=== PATIENT | female | born 1960 | race Caucasian/White ===

== ENCOUNTER → 2016-08-10 | Outpatient (CLI) | payer OTHER ==
[~2016-08-10] MED LIST: CIPRO500 MG PO; FLOMAX0.4 MG PO; HYDROCODONE BIT1 T11 PO; MEDROL DOSEPAK4 MG PO; VICODIN 5/500 505 MG PO; ZOFRAN ODT8 MG PO
== END | disposition home or self-care (01) ==
LOC: MAMMO 16:51
DX: Z12.31 Encounter for screening mammogram for malignant neoplasm of breast (principal)

== ENCOUNTER 2020-07-24 13:41 | Inpatient (IN) | payer OTHER ==
[~2020-07-24] VITALS: Ht 152.4 cm; Wt 73.9 kg
[2020-07-24 13:48] VITALS: BP 132/76
[2020-07-24 14:50] LABS: BASO # 0.1 10*3/uL (0.0-0.1); BASO % 0.7 % (0.0-1.0); EOS # 0.1 10*3/uL (0.0-0.4); EOS % 0.6 % (1.0-4.0); HEMATOCRIT 38.3 % (37.0-47.0); LYMPH # 1.8 10*3/uL (1.3-4.4); LYMPH % 14.2 % (27.0-41.0); MEAN CELL VOLUME 83.3 fl (81.0-99.0); MEAN CORPUSCULAR HGB 26.7 pg (27.0-31.0); MEAN CORPUSCULAR HGB CONC 32.1 g/dl (33.0-37.0); MEAN PLATELET VOLUME 8.7 fl (9.6-12.3); MONO # 1.5 10*3/uL (0.1-1.0); MONO % 12.1 % (3.0-9.0); NEUT # 8.9 10*3/uL (2.3-7.9); NEUT % 71.8 % (47.0-73.0); PLATELET COUNT AUTOMATED 531 10*3/uL (130-400); RED CELL DISTRI WIDTH 13.4 % (0-14.5); WHITE BLOOD COUNT 12.3 10*3/uL (4.8-10.8)
[2020-07-24 15:05] LABS: ALBUMIN 3.1 gm/dl (3.1-4.5); ALKALINE PHOSPHATASE 72 U/L (45-117); BUN 20 mg/dl (7-24); CHLORIDE 101 mmol/L (98-107); CREATININE 0.97 mg/dL (0.55-1.02); LIPASE 82 U/L (73-393); POTASSIUM 3.2 mmol/L (3.5-5.1); SGOT/AST 6 IU/L (3-35); SGPT/ALT 22 U/L (12-78); SODIUM 136 mmol/L (136-145); TOTAL PROTEIN 7.5 gm/dL (6.4-8.2)
[2020-07-24 16:55] LABS: BILIRUBIN Negative (Negative); BLOOD 1+ (Negative); CLARITY Clear (Clear); COLOR Yellow (Yellow); GLUCOSE Negative (Negative); KETONE 2+ (Negative); LEUKO ESTERASE Negative (Negative); NITRITE Negative (Negative); PH 5.5 (4.5-8.0); SPECIFIC GRAVITY >= 1.030 (1.001-1.030)
[2020-07-24 17:06] LABS: BACTERIA TRACE; FINE GRANULAR CAST 0-2; HYALINE CAST 0-2; MUCOUS 2+
[2020-07-24] MEDS ORDERED: AMLODIPINE BESYL5 MG PO (17:49)
[2020-07-24 17:50] VITALS: BP 119/60
[2020-07-24 19:55] VITALS: BP 120/65
[2020-07-25] VITALS: BP 115/62
[2020-07-25 06:34] LABS: ACT PARTIAL THROMBO TIME 29.9 SECONDS (20.0-32.1)
[2020-07-25 06:43] LABS: ALBUMIN 2.7 gm/dl (3.1-4.5); ALKALINE PHOSPHATASE 63 U/L (45-117); BUN 14 mg/dl (7-24); CHLORIDE 110 mmol/L (98-107); CHOLESTEROL 130 mg/dL (<200); CREATININE 0.89 mg/dL (0.55-1.02); FREE T4 1.47 ng/dl (0.76-1.46); POTASSIUM 3.5 mmol/L (3.5-5.1); SGOT/AST 6 IU/L (3-35); SGPT/ALT 17 U/L (12-78); SODIUM 139 mmol/L (136-145); TRIGLYCERIDES 95 mg/dl (<150); VLDL CHOLESTEROL 19 mg/dL (6-40)
[2020-07-25 06:48] LABS: HDL CHOLESTEROL 39 mg/dl (40-60); LDL CHOLESTEROL 72 mg/dL (9-159); TOTAL PROTEIN 6.5 gm/dL (6.4-8.2)
[2020-07-25 07:04] LABS: BASO # 0.1 10*3/uL (0.0-0.1); BASO % 0.6 % (0.0-1.0); EOS # 0.3 10*3/uL (0.0-0.4); EOS % 2.6 % (1.0-4.0); HEMATOCRIT 35.1 % (37.0-47.0); LYMPH # 2.4 10*3/uL (1.3-4.4); MEAN CELL VOLUME 85.8 fl (81.0-99.0); MEAN CORPUSCULAR HGB 26.9 pg (27.0-31.0); MEAN CORPUSCULAR HGB CONC 31.3 g/dl (33.0-37.0); MEAN PLATELET VOLUME 9.1 fl (9.6-12.3); MONO # 1.4 10*3/uL (0.1-1.0); MONO % 11.6 % (3.0-9.0); NEUT # 8.1 10*3/uL (2.3-7.9); NEUT % 65.4 % (47.0-73.0); PLATELET COUNT AUTOMATED 537 10*3/uL (130-400); RED BLOOD COUNT 4.09 10*6/uL (4.10-5.10); RED CELL DISTRI WIDTH 13.6 % (0-14.5); WHITE BLOOD COUNT 12.4 10*3/uL (4.8-10.8)
[2020-07-25 11:00] LABS: VITAMIN D, 25-HYDROXY 19.7 ng/mL (30-100)
[2020-07-25 12:00] VITALS: BP 136/71
[2020-07-25 16:00] VITALS: BP 114/59
[2020-07-25 20:00] VITALS: BP 130/69
[2020-07-26] VITALS: BP 117/65
[2020-07-26 06:11] LABS: BUN 10 mg/dl (7-24); CHLORIDE 108 mmol/L (98-107); CREATININE 0.73 mg/dL (0.55-1.02); SODIUM 141 mmol/L (136-145)
[2020-07-26 06:28] LABS: BASO # 0.1 10*3/uL (0.0-0.1); BASO % 0.6 % (0.0-1.0); EOS # 0.2 10*3/uL (0.0-0.4); EOS % 1.9 % (1.0-4.0); LYMPH % 17.7 % (27.0-41.0); MEAN CELL VOLUME 84.9 fl (81.0-99.0); MEAN CORPUSCULAR HGB 26.6 pg (27.0-31.0); MEAN CORPUSCULAR HGB CONC 31.3 g/dl (33.0-37.0); MEAN PLATELET VOLUME 8.9 fl (9.6-12.3); MONO # 1.3 10*3/uL (0.1-1.0); NEUT # 7.5 10*3/uL (2.3-7.9); NEUT % 67.2 % (47.0-73.0); PLATELET COUNT AUTOMATED 458 10*3/uL (130-400); RED BLOOD COUNT 3.65 10*6/uL (4.10-5.10); RED CELL DISTRI WIDTH 13.5 % (0-14.5); WHITE BLOOD COUNT 11.2 10*3/uL (4.8-10.8)
[2020-07-26 08:00] VITALS: BP 114/60
[2020-07-26 12:00] VITALS: BP 106/57
[2020-07-26 16:00] VITALS: BP 125/64
[2020-07-26 20:00] VITALS: BP 121/63
[2020-07-27] VITALS: BP 108/97
[2020-07-27 08:59] VITALS: BP 116/80
[2020-07-27 10:26] LABS: BASO # 0.1 10*3/uL (0.0-0.1); BASO % 0.7 % (0.0-1.0); EOS # 0.2 10*3/uL (0.0-0.4); EOS % 1.6 % (1.0-4.0); HEMATOCRIT 32.5 % (37.0-47.0); LYMPH # 1.8 10*3/uL (1.3-4.4); LYMPH % 15.4 % (27.0-41.0); MEAN CELL VOLUME 85.3 fl (81.0-99.0); MEAN CORPUSCULAR HGB 26.5 pg (27.0-31.0); MEAN CORPUSCULAR HGB CONC 31.1 g/dl (33.0-37.0); MEAN PLATELET VOLUME 8.7 fl (9.6-12.3); MONO # 1.1 10*3/uL (0.1-1.0); MONO % 9.5 % (3.0-9.0); NEUT # 8.2 10*3/uL (2.3-7.9); NEUT % 71.1 % (47.0-73.0); PLATELET COUNT AUTOMATED 488 10*3/uL (130-400); RED BLOOD COUNT 3.81 10*6/uL (4.10-5.10); RED CELL DISTRI WIDTH 13.8 % (0-14.5); WHITE BLOOD COUNT 11.5 10*3/uL (4.8-10.8)
[2020-07-27 10:36] LABS: BUN 12 mg/dl (7-24); CHLORIDE 108 mmol/L (98-107); CREATININE 0.93 mg/dL (0.55-1.02); POTASSIUM 2.9 mmol/L (3.5-5.1); SODIUM 141 mmol/L (136-145)
[2020-07-27 11:42] VITALS: BP 108/66
[2020-07-27 15:53] VITALS: BP 107/66
[2020-07-27 20:00] VITALS: BP 112/60
[2020-07-28] VITALS: BP 108/97
[2020-07-28 05:49] LABS: BUN 13 mg/dl (7-24); CHLORIDE 110 mmol/L (98-107); CREATININE 0.74 mg/dL (0.55-1.02); POTASSIUM 3.4 mmol/L (3.5-5.1); SODIUM 141 mmol/L (136-145)
[2020-07-28 06:08] LABS: BASO # 0.1 10*3/uL (0.0-0.1); BASO % 0.7 % (0.0-1.0); EOS # 0.3 10*3/uL (0.0-0.4); HEMATOCRIT 32.2 % (37.0-47.0); LYMPH # 2.3 10*3/uL (1.3-4.4); LYMPH % 21.8 % (27.0-41.0); MEAN CELL VOLUME 85.6 fl (81.0-99.0); MEAN CORPUSCULAR HGB 26.3 pg (27.0-31.0); MEAN CORPUSCULAR HGB CONC 30.7 g/dl (33.0-37.0); MEAN PLATELET VOLUME 8.8 fl (9.6-12.3); MONO # 1.2 10*3/uL (0.1-1.0); MONO % 10.8 % (3.0-9.0); NEUT # 6.6 10*3/uL (2.3-7.9); NEUT % 62.4 % (47.0-73.0); PLATELET COUNT AUTOMATED 510 10*3/uL (130-400); RED BLOOD COUNT 3.76 10*6/uL (4.10-5.10); RED CELL DISTRI WIDTH 13.8 % (0-14.5); WHITE BLOOD COUNT 10.6 10*3/uL (4.8-10.8)
[2020-07-28 08:00] VITALS: BP 121/71
[2020-07-28] MEDS ORDERED: PANTOPRAZOLE SO40 MG PO (09:53)
[2020-07-28] MEDS ORDERED: CIPROFLOXACIN500 M4 PO (09:53)
[2020-07-28] MEDS ORDERED: VITAMIN D350 MC2 PO (09:53)
[2020-07-28] MEDS ORDERED: DELZICOL400 M2 PO (09:53)
[2020-07-28] MEDS ORDERED: METRONIDAZOLE500 M1 PO (09:53)
== END 2020-07-28 10:10 | disposition home or self-care (01) | DRG 872 ==
LOC: ED 13:41 → 5E 18:13 → EDHOLD 18:13 → 5E 19:28
PROVIDERS: Hospitalist; Internal Medicine; Physician Assistant; Registered Nurse; ADMIT Family Medicine; ATTEND Family Medicine
DX: A41.9 Sepsis, unspecified organism (principal); K92.2 Gastrointestinal hemorrhage, unspecified; E44.0 Moderate protein-calorie malnutrition; D47.3 Essential (hemorrhagic) thrombocythemia; K81.9 Cholecystitis, unspecified; I10 Essential (primary) hypertension; K52.9 Noninfective gastroenteritis and colitis, unspecified; E87.6 Hypokalemia; R73.9 Hyperglycemia, unspecified; Z80.0 Family history of malignant neoplasm of digestive organs; Z80.3 Family history of malignant neoplasm of breast; Z79.899 Other long term (current) drug therapy

== ENCOUNTER 2020-08-25 13:09 | Observation (INO) | payer OTHER ==
[~2020-08-25] VITALS: Ht 152.4 cm; Wt 74.8 kg
[~2020-08-25 13:09] MED LIST changes: +AMLODIPINE BESYL5 MG PO; +CIPROFLOXACIN500 M4 PO; +DELZICOL400 M2 PO; +METRONIDAZOLE500 M1 PO; +PANTOPRAZOLE SO40 MG PO; +VITAMIN D350 MC2 PO
[2020-08-25 13:59] VITALS: BP 100/62
[2020-08-25 14:11] LABS: HEMATOCRIT 28.2 % (37.0-47.0); MEAN CELL VOLUME 79.7 fl (81.0-99.0); MEAN CORPUSCULAR HGB 24.9 pg (27.0-31.0); MEAN CORPUSCULAR HGB CONC 31.2 g/dl (33.0-37.0); MEAN PLATELET VOLUME 8.4 fl (9.6-12.3); NUCLEATED RED BLOOD CELL 0.1 10*3/uL (0.0-0.0); NUCLEATED RED BLOOD CELL 0.6 % (0.0-0.0); PLATELET COUNT AUTOMATED 528 10*3/uL (130-400); RED BLOOD COUNT 3.54 10*6/uL (4.10-5.10); RED CELL DISTRI WIDTH 14.8 % (0-14.5)
[2020-08-25 14:25] LABS: ACT PARTIAL THROMBO TIME 26.2 SECONDS (20.0-32.1); INTERNATIONAL NORM RATIO 1.1 (2.0-3.5)
[2020-08-25 14:29] LABS: ALBUMIN 1.8 gm/dl (3.1-4.5); ALKALINE PHOSPHATASE 72 U/L (45-117); BUN 22 mg/dl (7-24); CHLORIDE 89 mmol/L (98-107); CREATININE 1.35 mg/dL (0.55-1.02); POTASSIUM 3.2 mmol/L (3.5-5.1); SGOT/AST 15 IU/L (3-35); SGPT/ALT 26 U/L (12-78); SODIUM 129 mmol/L (136-145); TOTAL PROTEIN 6.6 gm/dL (6.4-8.2)
[2020-08-25 14:31] LABS: TOTAL CELLS COUNTED 100 #CELLS
[2020-08-25 14:32] LABS: PLATELET SUFFICIENCY HIGH (NORMAL); TROPONIN I < 0.015 ng/ml (<0.045)
[2020-08-25 14:33] LABS: OVALOCYTES FEW; POLYCHROMASIA SLIGHT
[2020-08-25 15:00] VITALS: BP 102/58
[2020-08-25 15:30] VITALS: BP 100/60
[2020-08-25 16:00] VITALS: BP 109/63
[2020-08-25 18:20] VITALS: BP 113/67
[2020-08-25 20:00] VITALS: BP 101/59
[2020-08-25 21:10] LABS: BILIRUBIN Negative (Negative); BLOOD 2+ (Negative); CLARITY Cloudy (Clear); COLOR Yellow (Yellow); GLUCOSE Negative (Negative); KETONE Negative (Negative); LEUKO ESTERASE 2+ (Negative); NITRITE Negative (Negative); PH 5.5 (4.5-8.0); SPECIFIC GRAVITY 1.015 (1.001-1.030); UROBILINOGEN 0.2 E.U./dl (0.0-1.0)
[2020-08-25 21:20] LABS: BACTERIA 1+; EPITHELIAL CELLS 51-100; URIC ACID CRYSTALS TRACE; WBC 16-20 wbc/hpf (0-5)
[2020-08-25 22:27] LABS: MEAN CELL VOLUME 80.1 fl (81.0-99.0); MEAN CORPUSCULAR HGB CONC 31.2 g/dl (33.0-37.0); MEAN PLATELET VOLUME 8.3 fl (9.6-12.3); NUCLEATED RED BLOOD CELL 0.2 % (0.0-0.0); PLATELET COUNT AUTOMATED 410 10*3/uL (130-400); RED BLOOD COUNT 3.12 10*6/uL (4.10-5.10); RED CELL DISTRI WIDTH 14.8 % (0-14.5); WHITE BLOOD COUNT 10.9 10*3/uL (4.8-10.8)
[2020-08-25 22:48] LABS: MICROCYTOSIS SLIGHT; PLATELET SUFFICIENCY HIGH (NORMAL); TOTAL CELLS COUNTED 100 #CELLS
[2020-08-26] VITALS: BP 94/54
[2020-08-26 05:56] LABS: MEAN CELL VOLUME 81.3 fl (81.0-99.0); MEAN CORPUSCULAR HGB 25.1 pg (27.0-31.0); MEAN CORPUSCULAR HGB CONC 30.9 g/dl (33.0-37.0); MEAN PLATELET VOLUME 8.4 fl (9.6-12.3); NUCLEATED RED BLOOD CELL 0.3 % (0.0-0.0); PLATELET COUNT AUTOMATED 380 10*3/uL (130-400); RED BLOOD COUNT 2.83 10*6/uL (4.10-5.10); RED CELL DISTRI WIDTH 14.8 % (0-14.5); WHITE BLOOD COUNT 11.6 10*3/uL (4.8-10.8)
[2020-08-26 06:31] LABS: CHLORIDE 100 mmol/L (98-107); SODIUM 136 mmol/L (136-145)
[2020-08-26 06:46] LABS: ALBUMIN 1.5 gm/dl (3.1-4.5); ALKALINE PHOSPHATASE 56 U/L (45-117); BUN 17 mg/dl (7-24); CREATININE 0.95 mg/dL (0.55-1.02); SGOT/AST 8 IU/L (3-35); SGPT/ALT 20 U/L (12-78); TOTAL PROTEIN 5.2 gm/dL (6.4-8.2)
[2020-08-26 06:56] LABS: PLATELET SUFFICIENCY NORMAL (NORMAL); ROULEAUX SLIGHT; SCHISTOCYTES FEW; TOTAL CELLS COUNTED 100 #CELLS
[2020-08-26 08:17] VITALS: BP 112/62
[2020-08-26 20:00] VITALS: BP 97/52
[2020-08-26 23:55] VITALS: BP 104/58
[2020-08-27] VITALS (11 sets, daily range): BP systolic 97–143; BP diastolic 46–93
[2020-08-27 06:10] LABS: MEAN CELL VOLUME 82.7 fl (81.0-99.0); MEAN CORPUSCULAR HGB 24.5 pg (27.0-31.0); MEAN CORPUSCULAR HGB CONC 29.6 g/dl (33.0-37.0); MEAN PLATELET VOLUME 8.6 fl (9.6-12.3); NUCLEATED RED BLOOD CELL 0.3 % (0.0-0.0); PLATELET COUNT AUTOMATED 381 10*3/uL (130-400); RED BLOOD COUNT 2.78 10*6/uL (4.10-5.10); WHITE BLOOD COUNT 7.8 10*3/uL (4.8-10.8)
[2020-08-27 06:20] LABS: BUN 12 mg/dl (7-24); CHLORIDE 103 mmol/L (98-107); CREATININE 0.79 mg/dL (0.55-1.02); POTASSIUM 2.8 mmol/L (3.5-5.1); SODIUM 138 mmol/L (136-145)
[2020-08-27 07:12] LABS: BURR CELLS FEW; PLATELET SUFFICIENCY NORMAL (NORMAL); POLYCHROMASIA SLIGHT; TOTAL CELLS COUNTED 100 #CELLS
[2020-08-27 13:33] LABS: HEMATOCRIT 26.8 % (37.0-47.0)
[2020-08-28] VITALS (8 sets, daily range): BP systolic 95–123; BP diastolic 57–72
[2020-08-28 06:01] LABS: BUN 8 mg/dl (7-24); CHLORIDE 108 mmol/L (98-107); CREATININE 0.73 mg/dL (0.55-1.02); POTASSIUM 3.3 mmol/L (3.5-5.1); SODIUM 141 mmol/L (136-145)
[2020-08-28 06:20] LABS: HEMATOCRIT 26.2 % (37.0-47.0); MEAN CORPUSCULAR HGB 25.6 pg (27.0-31.0); MEAN CORPUSCULAR HGB CONC 30.5 g/dl (33.0-37.0); MEAN PLATELET VOLUME 8.3 fl (9.6-12.3); PLATELET COUNT AUTOMATED 388 10*3/uL (130-400); RED BLOOD COUNT 3.12 10*6/uL (4.10-5.10); RED CELL DISTRI WIDTH 15.1 % (0-14.5); WHITE BLOOD COUNT 8.6 10*3/uL (4.8-10.8)
[2020-08-28 07:27] LABS: BURR CELLS FEW; OVALOCYTES FEW; POLYCHROMASIA SLIGHT; TOTAL CELLS COUNTED 100 #CELLS
[2020-08-28 07:28] LABS: PLATELET SUFFICIENCY NORMAL (NORMAL); ROULEAUX SLIGHT
[2020-08-29] VITALS: BP 102/57
[2020-08-29 06:18] LABS: HEMATOCRIT 25.7 % (37.0-47.0); MEAN CELL VOLUME 83.2 fl (81.0-99.0); MEAN CORPUSCULAR HGB 25.2 pg (27.0-31.0); MEAN CORPUSCULAR HGB CONC 30.4 g/dl (33.0-37.0); MEAN PLATELET VOLUME 8.2 fl (9.6-12.3); NUCLEATED RED BLOOD CELL 0.2 % (0.0-0.0); PLATELET COUNT AUTOMATED 394 10*3/uL (130-400); RED BLOOD COUNT 3.09 10*6/uL (4.10-5.10); RED CELL DISTRI WIDTH 15.6 % (0-14.5); WHITE BLOOD COUNT 11.3 10*3/uL (4.8-10.8)
[2020-08-29 06:46] LABS: CHLORIDE 109 mmol/L (98-107); POTASSIUM 3.1 mmol/L (3.5-5.1); SODIUM 141 mmol/L (136-145)
[2020-08-29 06:50] LABS: BUN 8 mg/dl (7-24); CREATININE 0.68 mg/dL (0.55-1.02)
[2020-08-29 07:06] LABS: ATYPICAL LYMPHS 1 % (0-0); BASOPHILS 1 % (0-1); BURR CELLS MODERATE; OVALOCYTES FEW; PLATELET SUFFICIENCY NORMAL (NORMAL); POLYCHROMASIA SLIGHT; ROULEAUX SLIGHT; TOTAL CELLS COUNTED 100 #CELLS
[2020-08-29 08:00] VITALS: BP 104/74
[2020-08-29 12:00] VITALS: BP 101/63
[2020-08-29 16:00] VITALS: BP 119/68
[2020-08-29 20:00] VITALS: BP 101/61
[2020-08-30 00:08] VITALS: BP 98/57
[2020-08-30 06:52] LABS: BUN 12 mg/dl (7-24); CHLORIDE 109 mmol/L (98-107); POTASSIUM 3.9 mmol/L (3.5-5.1); SODIUM 141 mmol/L (136-145)
[2020-08-30 08:00] VITALS: BP 81/47
[2020-08-30 09:35] VITALS: BP 101/60
[2020-08-30 12:00] VITALS: BP 104/59
[2020-08-30 16:00] VITALS: BP 103/58
[2020-08-30 20:00] VITALS: BP 100/45
[2020-08-31] VITALS: BP 96/52
[2020-08-31 08:00] VITALS: BP 121/65
[2020-08-31 12:04] VITALS: BP 104/57
[2020-08-31 16:00] VITALS: BP 113/70
[2020-08-31 20:00] VITALS: BP 120/73
[2020-09-01] VITALS: BP 120/66
[2020-09-01 08:00] VITALS: BP 108/64
[2020-09-01] MEDS ORDERED: ASACOL HD800 M1 PO (12:53)
[2020-09-01] MEDS ORDERED: PREDNISONE10 MG PO (12:56)
[2020-09-01] MEDS ORDERED: HYDROCODONE-AC1 EAC1 PO (12:57)
== END 2020-09-01 17:44 | disposition home or self-care (01) ==
LOC: ED 13:09 → EDHOLD 14:51 → 5E 14:51 → EDHOLD 16:41 → 5E 17:12
PROVIDERS: Emergency Medicine; Internal Medicine; ADMIT Internal Medicine; ATTEND Internal Medicine
DX: K62.5 Hemorrhage of anus and rectum (principal); K51.90 Ulcerative colitis, unspecified, without complications; R79.89 Other specified abnormal findings of blood chemistry; E87.1 Hypo-osmolality and hyponatremia; E87.2 Acidosis; N17.0 Acute kidney failure with tubular necrosis; D50.0 Iron deficiency anemia secondary to blood loss (chronic); R00.0 Tachycardia, unspecified; D72.829 Elevated white blood cell count, unspecified; D47.3 Essential (hemorrhagic) thrombocythemia; E87.8 Other disorders of electrolyte and fluid balance, not elsewhere classified; E87.6 Hypokalemia; E83.41 Hypermagnesemia; E83.39 Other disorders of phosphorus metabolism; E43 Unspecified severe protein-calorie malnutrition

== ENCOUNTER 2020-12-03 16:07 | Observation (INO) | payer OTHER ==
[2020-12-03] VITALS (15 sets, daily range): BP systolic 119–133; BP diastolic 58–92
[~2020-12-03] VITALS: Ht 152.4 cm; Wt 72.6 kg
[~2020-12-03 16:07] MED LIST changes: +ASACOL HD800 M1 PO; +HYDROCODONE-AC1 EAC1 PO; +PREDNISONE10 MG PO
[2020-12-03 18:00] LABS: HEMATOCRIT 21.9 % (37.0-47.0); MEAN CELL VOLUME 72.8 fl (81.0-99.0); MEAN CORPUSCULAR HGB 19.9 pg (27.0-31.0); MEAN CORPUSCULAR HGB CONC 27.4 g/dl (33.0-37.0); MEAN PLATELET VOLUME 8.6 fl (9.6-12.3); NUCLEATED RED BLOOD CELL 0.2 % (0.0-0.0); PLATELET COUNT AUTOMATED 847 10*3/uL (130-400); RED BLOOD COUNT 3.01 10*6/uL (4.10-5.10); RED CELL DISTRI WIDTH 17.2 % (0-14.5); WHITE BLOOD COUNT 8.7 10*3/uL (4.8-10.8)
[2020-12-03 18:18] LABS: ALBUMIN 3.2 gm/dl (3.1-4.5); ALKALINE PHOSPHATASE 48 U/L (45-117); BUN 18 mg/dl (7-24); CHLORIDE 107 mmol/L (98-107); CREATININE 0.82 mg/dL (0.55-1.02); LIPASE 176 U/L (73-393); SGOT/AST 11 IU/L (3-35); SGPT/ALT 19 U/L (12-78); SODIUM 138 mmol/L (136-145); TOTAL PROTEIN 7.3 gm/dL (6.4-8.2); TROPONIN I < 0.015 ng/ml (<0.045)
[2020-12-03 18:21] LABS: BASOPHILS 1 % (0-1); MICROCYTOSIS SLIGHT; PLATELET SUFFICIENCY HIGH (NORMAL); TOTAL CELLS COUNTED 100 #CELLS
[2020-12-03 18:22] LABS: OVALOCYTES FEW; TARGET CELLS FEW
[2020-12-03 18:35] LABS: BILIRUBIN Negative (Negative); BLOOD Negative (Negative); CLARITY Clear (Clear); COLOR Yellow (Yellow); GLUCOSE Negative (Negative); KETONE Negative (Negative); LEUKO ESTERASE Negative (Negative); NITRITE Negative (Negative); UROBILINOGEN 0.2 E.U./dl (0.0-1.0)
[2020-12-03 18:52] LABS: BACTERIA TRACE; MUCOUS TRACE
[2020-12-04] VITALS (7 sets, daily range): BP systolic 113–142; BP diastolic 52–70
[2020-12-04] MEDS ORDERED: ONDANSETRON HYDR4 M1 PO (01:31)
[2020-12-04] MEDS ORDERED: ROPINIROLE HYDRO2 M2 PO (02:38)
[2020-12-04 02:57] LABS: BASO # 0.1 10*3/uL (0.0-0.1); BASO % 0.9 % (0.0-1.0); EOS # 0.6 10*3/uL (0.0-0.4); EOS % 5.5 % (1.0-4.0); LYMPH # 2.6 10*3/uL (1.3-4.4); LYMPH % 23.7 % (27.0-41.0); MEAN CELL VOLUME 76.6 fl (81.0-99.0); MEAN CORPUSCULAR HGB 22.7 pg (27.0-31.0); MEAN CORPUSCULAR HGB CONC 29.7 g/dl (33.0-37.0); MEAN PLATELET VOLUME 8.2 fl (9.6-12.3); MONO # 1.4 10*3/uL (0.1-1.0); MONO % 12.1 % (3.0-9.0); NEUT # 6.3 10*3/uL (2.3-7.9); NUCLEATED RED BLOOD CELL 0.1 10*3/uL (0.0-0.0); NUCLEATED RED BLOOD CELL 0.5 % (0.0-0.0); PLATELET COUNT AUTOMATED 751 10*3/uL (130-400); RED BLOOD COUNT 4.18 10*6/uL (4.10-5.10); RED CELL DISTRI WIDTH 18.9 % (0-14.5); WHITE BLOOD COUNT 11.1 10*3/uL (4.8-10.8)
[2020-12-04 06:28] LABS: ALBUMIN 3.2 gm/dl (3.1-4.5); CHLORIDE 108 mmol/L (98-107); POTASSIUM 3.8 mmol/L (3.5-5.1); SODIUM 139 mmol/L (136-145); TOTAL PROTEIN 7.2 gm/dL (6.4-8.2)
[2020-12-04 06:29] LABS: HEMATOCRIT 30.4 % (37.0-47.0); MEAN CELL VOLUME 75.8 fl (81.0-99.0); MEAN CORPUSCULAR HGB 22.4 pg (27.0-31.0); MEAN CORPUSCULAR HGB CONC 29.6 g/dl (33.0-37.0); MEAN PLATELET VOLUME 8.7 fl (9.6-12.3); NUCLEATED RED BLOOD CELL 0.4 % (0.0-0.0); PLATELET COUNT AUTOMATED 766 10*3/uL (130-400); RED BLOOD COUNT 4.01 10*6/uL (4.10-5.10); RED CELL DISTRI WIDTH 18.7 % (0-14.5); WHITE BLOOD COUNT 10.8 10*3/uL (4.8-10.8)
[2020-12-04 06:35] LABS: ALKALINE PHOSPHATASE 45 U/L (45-117); BUN 14 mg/dl (7-24); FREE T4 1.02 ng/dl (0.76-1.46); SGOT/AST 13 IU/L (3-35); SGPT/ALT 20 U/L (12-78)
[2020-12-04 07:10] LABS: BASOPHILS 4 % (0-1); TOTAL CELLS COUNTED 100 #CELLS
[2020-12-04 07:11] LABS: MICROCYTOSIS SLIGHT; PLATELET SUFFICIENCY HIGH (NORMAL)
[2020-12-04 14:21] LABS: MEAN CORPUSCULAR HGB 22.3 pg (27.0-31.0); MEAN CORPUSCULAR HGB CONC 29.4 g/dl (33.0-37.0); MEAN PLATELET VOLUME 8.5 fl (9.6-12.3); NUCLEATED RED BLOOD CELL 0.1 10*3/uL (0.0-0.0); PLATELET COUNT AUTOMATED 768 10*3/uL (130-400); RED BLOOD COUNT 4.08 10*6/uL (4.10-5.10); RED CELL DISTRI WIDTH 18.5 % (0-14.5); WHITE BLOOD COUNT 11.9 10*3/uL (4.8-10.8)
[2020-12-04 14:42] LABS: BASOPHILS 2 % (0-1); TOTAL CELLS COUNTED 100 #CELLS
[2020-12-04 14:44] LABS: PLATELET SUFFICIENCY HIGH (NORMAL); POLYCHROMASIA SLIGHT
[2020-12-04 14:45] LABS: MICROCYTOSIS SLIGHT
[2020-12-04] MEDS ORDERED: PREDNISONE10 MG PO (15:49)
== END 2020-12-04 17:50 | disposition home or self-care (01) ==
LOC: ED 16:07 → 4E 12-04 01:04 → EDHOLD 12-04 01:04 → 4E 12-04 01:04
PROVIDERS: Internal Medicine; Nurse Practitioner Family; ADMIT Family Medicine; ATTEND Family Medicine
DX: K92.2 Gastrointestinal hemorrhage, unspecified (principal); D50.9 Iron deficiency anemia, unspecified; D47.3 Essential (hemorrhagic) thrombocythemia; K59.00 Constipation, unspecified; K51.90 Ulcerative colitis, unspecified, without complications; K76.0 Fatty (change of) liver, not elsewhere classified; G25.81 Restless legs syndrome; I10 Essential (primary) hypertension; E66.9 Obesity, unspecified; R73.9 Hyperglycemia, unspecified; E83.41 Hypermagnesemia; Z87.891 Personal history of nicotine dependence

== ENCOUNTER → 2021-01-08 | Outpatient (CLI) | payer OTHER ==
[~2021-01-08] MED LIST changes: +ONDANSETRON HYDR4 M1 PO; +ROPINIROLE HYDRO2 M2 PO
== END | disposition home or self-care (01) ==
LOC: MAMMO 11:26
PROVIDERS: ATTEND Nurse Practitioner Family
DX: Z12.31 Encounter for screening mammogram for malignant neoplasm of breast (principal); N64.89 Other specified disorders of breast

== ENCOUNTER → 2021-01-27 | Outpatient (CLI) | payer OTHER | END | disposition home or self-care (01) | LOC: MAMMO 14:13 | PROVIDERS: ATTEND Nurse Practitioner Family | DX: R92.8 Other abnormal and inconclusive findings on diagnostic imaging of breast (principal) ==

== ENCOUNTER → 2021-02-09 | Outpatient (CLI) | payer OTHER ==
[2021-02-09 13:41] LABS: BASO # 0.1 10*3/uL (0.0-0.1); BASO % 1.1 % (0.0-1.0); EOS # 0.3 10*3/uL (0.0-0.4); EOS % 3.7 % (1.0-4.0); HEMATOCRIT 33.1 % (37.0-47.0); LYMPH # 1.9 10*3/uL (1.3-4.4); LYMPH % 26.1 % (27.0-41.0); MEAN CELL VOLUME 76.6 fl (81.0-99.0); MEAN CORPUSCULAR HGB CONC 28.7 g/dl (33.0-37.0); MEAN PLATELET VOLUME 8.7 fl (9.6-12.3); MONO # 0.7 10*3/uL (0.1-1.0); MONO % 9.6 % (3.0-9.0); NEUT # 4.3 10*3/uL (2.3-7.9); NEUT % 59.4 % (47.0-73.0); PLATELET COUNT AUTOMATED 609 10*3/uL (130-400); RED BLOOD COUNT 4.32 10*6/uL (4.10-5.10); RED CELL DISTRI WIDTH 18.7 % (0-14.5); WHITE BLOOD COUNT 7.3 10*3/uL (4.8-10.8)
[2021-02-09 14:05] LABS: IRON 37 ug/dL (50-170); TOTAL IRON BINDING CAPACITY 422 ug/dl (250-450)
== END | disposition home or self-care (01) ==
LOC: LAB 13:16
PROVIDERS: ATTEND Nurse Practitioner Family
DX: D64.9 Anemia, unspecified (principal); K62.5 Hemorrhage of anus and rectum; G25.81 Restless legs syndrome

== ENCOUNTER → 2021-02-10 | Outpatient (CLI) | payer OTHER ==
[2021-02-10 14:57] LABS: BASO # 0.1 10*3/uL (0.0-0.1); BASO % 1.1 % (0.0-1.0); EOS # 0.3 10*3/uL (0.0-0.4); EOS % 3.4 % (1.0-4.0); HEMATOCRIT 34.7 % (37.0-47.0); LYMPH # 2.5 10*3/uL (1.3-4.4); LYMPH % 27.8 % (27.0-41.0); MEAN CELL VOLUME 77.1 fl (81.0-99.0); MEAN CORPUSCULAR HGB CONC 28.5 g/dl (33.0-37.0); MEAN PLATELET VOLUME 8.6 fl (9.6-12.3); MONO # 0.8 10*3/uL (0.1-1.0); MONO % 9.5 % (3.0-9.0); NEUT # 5.1 10*3/uL (2.3-7.9); PLATELET COUNT AUTOMATED 634 10*3/uL (130-400); RED CELL DISTRI WIDTH 18.8 % (0-14.5); WHITE BLOOD COUNT 8.9 10*3/uL (4.8-10.8)
== END | disposition home or self-care (01) ==
LOC: LAB 14:37
PROVIDERS: ATTEND Surgery
DX: D64.9 Anemia, unspecified (principal)

== ENCOUNTER 2021-05-13 16:33 | Inpatient (IN) | payer OTHER ==
[2021-05-13] VITALS (10 sets, daily range): BP systolic 110–145; BP diastolic 55–78
[~2021-05-13] VITALS: Ht 152.4 cm; Wt 76.0 kg
[2021-05-13 17:39] LABS: MEAN CORPUSCULAR HGB CONC 26.1 g/dl (33.0-37.0); NUCLEATED RED BLOOD CELL 0.1 10*3/uL (0.0-0.0); RED CELL DISTRI WIDTH 17.8 % (0-14.5)
[2021-05-13 17:41] LABS: MEAN CELL VOLUME 65.2 fl (81.0-99.0); MEAN PLATELET VOLUME 8.7 fl (9.6-12.3); NUCLEATED RED BLOOD CELL 0.8 % (0.0-0.0); PLATELET COUNT AUTOMATED 660 10*3/uL (130-400); RED BLOOD COUNT 2.53 10*6/uL (4.10-5.10); WHITE BLOOD COUNT 7.7 10*3/uL (4.8-10.8)
[2021-05-13 17:56] LABS: ALBUMIN 3.2 gm/dl (3.1-4.5); CREATININE 1.17 mg/dL (0.55-1.02); POTASSIUM 3.9 mmol/L (3.5-5.1); TOTAL PROTEIN 7.1 gm/dL (6.4-8.2)
[2021-05-13 18:02] LABS: ACT PARTIAL THROMBO TIME 23.6 SECONDS (20.0-32.1)
[2021-05-13 18:11] LABS: BASOPHILS 2 % (0-1); PLATELET SUFFICIENCY HIGH (NORMAL); TOTAL CELLS COUNTED 100 #CELLS
[2021-05-13 18:12] LABS: POLYCHROMASIA SLIGHT; STOMATOCYTE FEW; TARGET CELLS FEW
[2021-05-13 18:14] LABS: HEMATOCRIT 16.5 % (37.0-47.0)
[2021-05-13 22:48] LABS: BILIRUBIN Negative (Negative); BLOOD Negative (Negative); CLARITY Clear (Clear); COLOR Yellow (Yellow); GLUCOSE Negative (Negative); KETONE Trace (Negative); LEUKO ESTERASE Trace (Negative); NITRITE Negative (Negative); SPECIFIC GRAVITY 1.015 (1.001-1.030); UROBILINOGEN 0.2 E.U./dl (0.0-1.0)
[2021-05-14] VITALS (11 sets, daily range): BP systolic 127–150; BP diastolic 53–78
[2021-05-14 04:10] LABS: HEMATOCRIT 27.3 % (37.0-47.0); MEAN CORPUSCULAR HGB 20.5 pg (27.0-31.0); MEAN CORPUSCULAR HGB CONC 29.3 g/dl (33.0-37.0); MEAN PLATELET VOLUME 8.7 fl (9.6-12.3); NUCLEATED RED BLOOD CELL 0.1 10*3/uL (0.0-0.0); NUCLEATED RED BLOOD CELL 1.6 % (0.0-0.0); PLATELET COUNT AUTOMATED 678 10*3/uL (130-400); WHITE BLOOD COUNT 8.7 10*3/uL (4.8-10.8)
[2021-05-14 04:36] LABS: PLATELET SUFFICIENCY HIGH (NORMAL); TOTAL CELLS COUNTED 100 #CELLS
[2021-05-14 04:37] LABS: OVALOCYTES FEW; POLYCHROMASIA SLIGHT
[2021-05-14 05:05] LABS: ALBUMIN 3.5 gm/dl (3.1-4.5); ALKALINE PHOSPHATASE 51 U/L (45-117); BUN 16 mg/dl (7-24); CHLORIDE 110 mmol/L (98-107); CREATININE 0.87 mg/dL (0.55-1.02); POTASSIUM 4.1 mmol/L (3.5-5.1); SGOT/AST 9 IU/L (3-35); SGPT/ALT 24 U/L (12-78); SODIUM 139 mmol/L (136-145)
[2021-05-14 05:06] LABS: FREE T4 1.08 ng/dl (0.76-1.46)
[2021-05-14 05:39] LABS: CHOLESTEROL 123 mg/dL (<200); LDL CHOLESTEROL 57 mg/dL (9-159); THYROID STIM HORMONE (HS) 0.457 uIU/ml (0.358-4.75); TRIGLYCERIDES 77 mg/dl (<150)
[2021-05-15] VITALS: BP 137/66
[2021-05-15 08:00] VITALS: BP 154/77
[2021-05-15 09:19] LABS: HEMATOCRIT 24.3 % (37.0-47.0); MEAN CELL VOLUME 69.4 fl (81.0-99.0); MEAN CORPUSCULAR HGB CONC 28.8 g/dl (33.0-37.0); MEAN PLATELET VOLUME 8.9 fl (9.6-12.3); NUCLEATED RED BLOOD CELL 0.1 10*3/uL (0.0-0.0); NUCLEATED RED BLOOD CELL 1.3 % (0.0-0.0); PLATELET COUNT AUTOMATED 631 10*3/uL (130-400); RED CELL DISTRI WIDTH 23.8 % (0-14.5); WHITE BLOOD COUNT 7.2 10*3/uL (4.8-10.8)
[2021-05-15 09:46] LABS: BUN 19 mg/dl (7-24); CHLORIDE 108 mmol/L (98-107); CREATININE 0.81 mg/dL (0.55-1.02); POTASSIUM 4.1 mmol/L (3.5-5.1); SODIUM 139 mmol/L (136-145)
[2021-05-15 10:18] LABS: BASOPHILS 1 % (0-1); POLYCHROMASIA MODERATE; TOTAL CELLS COUNTED 100 #CELLS
[2021-05-15 10:19] LABS: MICROCYTOSIS MODERATE; PLATELET SUFFICIENCY HIGH (NORMAL); SCHISTOCYTES FEW
[2021-05-15 12:00] VITALS: BP 148/86
[2021-05-15 16:00] VITALS: BP 147/75
[2021-05-15 20:00] VITALS: BP 133/64
[2021-05-16] VITALS: BP 135/66
[2021-05-16 06:56] LABS: BASO % 0.2 % (0.0-1.0); HEMATOCRIT 25.9 % (37.0-47.0); LYMPH % 16.2 % (27.0-41.0); MEAN CELL VOLUME 69.6 fl (81.0-99.0); MEAN CORPUSCULAR HGB 19.9 pg (27.0-31.0); MEAN CORPUSCULAR HGB CONC 28.6 g/dl (33.0-37.0); MONO # 0.3 10*3/uL (0.1-1.0); MONO % 4.7 % (3.0-9.0); NEUT # 4.6 10*3/uL (2.3-7.9); NEUT % 77.6 % (47.0-73.0); NUCLEATED RED BLOOD CELL 0.7 % (0.0-0.0); PLATELET COUNT AUTOMATED 632 10*3/uL (130-400); RED BLOOD COUNT 3.72 10*6/uL (4.10-5.10); RED CELL DISTRI WIDTH 24.8 % (0-14.5)
[2021-05-16 08:00] VITALS: BP 129/74
[2021-05-16] MEDS ORDERED: VITAMIN D350 MC2 PO (11:37)
[2021-05-16] MEDS ORDERED: PREDNISONE10 MG PO (11:37)
== END 2021-05-16 14:06 | disposition home or self-care (01) | DRG 385 ==
LOC: ED 16:33 → 5E 21:28 → EDHOLD 21:28 → ICCU 23:37 → 5E 05-14 04:44
PROVIDERS: Internal Medicine; Physician Assistant; ADMIT Student in an Organized Health Care Education/Training Program; ATTEND Student in an Organized Health Care Education/Training Program
PROC: 30243N1 Transfusion of Nonautologous Red Blood Cells into Central Vein, Percutaneous Approach (ICD-10-PCS; principal; 2021-05-13)
DX: K51.011 Ulcerative (chronic) pancolitis with rectal bleeding (principal); N17.0 Acute kidney failure with tubular necrosis; K92.2 Gastrointestinal hemorrhage, unspecified; D50.0 Iron deficiency anemia secondary to blood loss (chronic); D75.839 Thrombocytosis, unspecified; E87.8 Other disorders of electrolyte and fluid balance, not elsewhere classified; R73.9 Hyperglycemia, unspecified; E83.41 Hypermagnesemia; I10 Essential (primary) hypertension; G25.81 Restless legs syndrome; Z90.89 Acquired absence of other organs; Z87.891 Personal history of nicotine dependence

== ENCOUNTER → 2021-10-19 | Outpatient (CLI) | payer OTHER ==
[2021-10-21 18:06] LABS: TB1 Ag VALUE 0.01 IU/mL (.)
== END | disposition home or self-care (01) ==
LOC: LAB 12:09
PROVIDERS: ATTEND Internal Medicine Gastroenterology
DX: K51.00 Ulcerative (chronic) pancolitis without complications (principal); R19.7 Diarrhea, unspecified; R53.83 Other fatigue; D62 Acute posthemorrhagic anemia; Z80.0 Family history of malignant neoplasm of digestive organs

== ENCOUNTER 2021-10-28 11:51 | Observation (INO) | payer OTHER ==
[2021-10-28] VITALS (11 sets, daily range): BP systolic 109–140; BP diastolic 50–71
[~2021-10-28] VITALS: Ht 152.4 cm; Wt 84.9 kg
[2021-10-28] MEDS ORDERED: PEPCID40 MG PO (12:22)
[2021-10-28 12:44] LABS: HEMATOCRIT 26.4 % (37.0-47.0); MANUAL DIFF REFLEX YES; MEAN CORPUSCULAR HGB CONC 25.4 g/dl (33.0-37.0); MEAN PLATELET VOLUME 8.5 fl (9.6-12.3); PLATELET COUNT AUTOMATED 721 10*3/uL (130-400); RED BLOOD COUNT 4.19 10*6/uL (4.10-5.10); RED CELL DISTRI WIDTH 19.9 % (0-14.5)
[2021-10-28 12:54] LABS: ACT PARTIAL THROMBO TIME 25.4 SECONDS (20.0-32.1); INTERNATIONAL NORM RATIO 0.9 (2.0-3.5)
[2021-10-28 13:02] LABS: ALKALINE PHOSPHATASE 51 U/L (45-117); BUN 24 mg/dl (7-24); CHLORIDE 109 mmol/L (98-107); CREATININE 1.03 mg/dL (0.55-1.02); LIPASE 244 U/L (73-393); POTASSIUM 4.1 mmol/L (3.5-5.1); SGOT/AST 14 IU/L (3-35); SGPT/ALT 23 U/L (12-78); SODIUM 138 mmol/L (136-145); TOTAL PROTEIN 7.5 gm/dL (6.4-8.2)
[2021-10-28 13:15] LABS: BASOPHILS 2 % (0-1); PLATELET SUFFICIENCY HIGH (NORMAL); TOTAL CELLS COUNTED 100 #CELLS
[2021-10-28 13:16] LABS: SCHISTOCYTES FEW
[2021-10-28 13:17] LABS: OVALOCYTES FEW
[2021-10-28 19:45] LABS: BASO # 0.1 10*3/uL (0.0-0.1); BASO % 1.1 % (0.0-1.0); EOS # 0.2 10*3/uL (0.0-0.4); EOS % 3.1 % (1.0-4.0); HEMATOCRIT 26.6 % (37.0-47.0); LYMPH # 1.6 10*3/uL (1.3-4.4); LYMPH % 22.2 % (27.0-41.0); MEAN CORPUSCULAR HGB 17.7 pg (27.0-31.0); MEAN CORPUSCULAR HGB CONC 26.7 g/dl (33.0-37.0); MEAN PLATELET VOLUME 8.6 fl (9.6-12.3); MONO # 0.7 10*3/uL (0.1-1.0); MONO % 8.9 % (3.0-9.0); NEUT # 4.7 10*3/uL (2.3-7.9); NEUT % 64.4 % (47.0-73.0); PLATELET COUNT AUTOMATED 631 10*3/uL (130-400); RED BLOOD COUNT 4.02 10*6/uL (4.10-5.10); RED CELL DISTRI WIDTH 22.8 % (0-14.5); WHITE BLOOD COUNT 7.3 10*3/uL (4.8-10.8)
[2021-10-28 19:53] LABS: MEAN CELL VOLUME 66.2 fl (81.0-99.0)
[2021-10-28] MEDS ORDERED: ASACOL HD800 M1 PO (21:29)
[2021-10-29] VITALS: BP 132/73
[2021-10-29 06:19] LABS: HEMATOCRIT 30.1 % (37.0-47.0); MANUAL DIFF REFLEX YES; MEAN CELL VOLUME 65.2 fl (81.0-99.0); MEAN CORPUSCULAR HGB 17.1 pg (27.0-31.0); MEAN CORPUSCULAR HGB CONC 26.2 g/dl (33.0-37.0); MEAN PLATELET VOLUME 8.8 fl (9.6-12.3); PLATELET COUNT AUTOMATED 778 10*3/uL (130-400); RED BLOOD COUNT 4.62 10*6/uL (4.10-5.10); RED CELL DISTRI WIDTH 22.5 % (0-14.5); WHITE BLOOD COUNT 11.4 10*3/uL (4.8-10.8)
[2021-10-29 06:24] LABS: BUN 19 mg/dl (7-24); CHLORIDE 110 mmol/L (98-107); CHOLESTEROL 166 mg/dL (<200); POTASSIUM 4.5 mmol/L (3.5-5.1); SGOT/AST 15 IU/L (3-35); SGPT/ALT 20 U/L (12-78); SODIUM 140 mmol/L (136-145)
[2021-10-29 06:32] LABS: ALKALINE PHOSPHATASE 46 U/L (45-117); CREATININE 0.86 mg/dL (0.55-1.02); FREE T4 1.09 ng/dl (0.76-1.46); LDL CHOLESTEROL 100 mg/dL (9-159); THYROID STIM HORMONE (HS) 0.443 uIU/ml (0.358-4.75); TOTAL PROTEIN 7.4 gm/dL (6.4-8.2); TRIGLYCERIDES 67 mg/dl (<150)
[2021-10-29 07:40] LABS: BASOPHILS 1 % (0-1); TOTAL CELLS COUNTED 100 #CELLS
[2021-10-29 07:41] LABS: MICROCYTOSIS MODERATE; OVALOCYTES FEW; PLATELET SUFFICIENCY HIGH (NORMAL); POLYCHROMASIA SLIGHT; SCHISTOCYTES FEW
[2021-10-29 08:00] VITALS: BP 129/66
[2021-10-29 08:02] LABS: VITAMIN D, 25-HYDROXY 46.7 ng/mL (30-100)
[2021-10-29 12:00] VITALS: BP 128/62
[2021-10-29] MEDS ORDERED: PREDNISONE10 MG PO (12:36)
== END 2021-10-29 13:41 | disposition home or self-care (01) ==
LOC: ED 11:51 → 4E 14:42 → EDHOLD 14:42 → 4E 20:11
PROVIDERS: Emergency Medicine; Internal Medicine; Student in an Organized Health Care Education/Training Program; ADMIT Internal Medicine; ATTEND Internal Medicine
DX: K51.919 Ulcerative colitis, unspecified with unspecified complications (principal); K92.2 Gastrointestinal hemorrhage, unspecified; G25.81 Restless legs syndrome; D50.0 Iron deficiency anemia secondary to blood loss (chronic); N17.0 Acute kidney failure with tubular necrosis; D75.839 Thrombocytosis, unspecified; Z79.899 Other long term (current) drug therapy; Z90.89 Acquired absence of other organs; Z87.891 Personal history of nicotine dependence

== ENCOUNTER → 2022-02-08 | Outpatient (CLI) | payer OTHER ==
[~2022-02-08] MED LIST changes: +PEPCID40 MG PO; +PREDNISONE20 M1 PO
[2022-02-08 13:51] LABS: BASO # 0.1 10*3/uL (0.0-0.1); BASO % 1.3 % (0.0-1.0); EOS # 0.9 10*3/uL (0.0-0.4); EOS % 10.6 % (1.0-4.0); HEMATOCRIT 28.7 % (37.0-47.0); LYMPH # 1.7 10*3/uL (1.3-4.4); LYMPH % 20.1 % (27.0-41.0); MEAN CELL VOLUME 77.2 fl (81.0-99.0); MEAN CORPUSCULAR HGB 22.3 pg (27.0-31.0); MEAN CORPUSCULAR HGB CONC 28.9 g/dl (33.0-37.0); MEAN PLATELET VOLUME 8.3 fl (9.6-12.3); MONO # 0.6 10*3/uL (0.1-1.0); MONO % 7.5 % (3.0-9.0); NEUT # 5.1 10*3/uL (2.3-7.9); PLATELET COUNT AUTOMATED 714 10*3/uL (130-400); RED BLOOD COUNT 3.72 10*6/uL (4.10-5.10); RED CELL DISTRI WIDTH 26.5 % (0-14.5); WHITE BLOOD COUNT 8.5 10*3/uL (4.8-10.8)
[2022-02-08 14:10] LABS: BUN 19 mg/dl (7-24); CHLORIDE 112 mmol/L (98-107); POTASSIUM 3.8 mmol/L (3.5-5.1); SGOT/AST 7 IU/L (3-35); SGPT/ALT 21 U/L (12-78); SODIUM 145 mmol/L (136-145)
[2022-02-08 14:12] LABS: ALKALINE PHOSPHATASE 48 U/L (45-117); TOTAL PROTEIN 6.8 gm/dL (6.4-8.2)
== END | disposition home or self-care (01) ==
LOC: LAB 13:04
PROVIDERS: Nurse Practitioner Family; ATTEND Nurse Practitioner Family
DX: K92.2 Gastrointestinal hemorrhage, unspecified (principal); D62 Acute posthemorrhagic anemia

== ENCOUNTER → 2022-04-06 | Outpatient (CLI) | payer OTHER ==
[~2022-04-06] MED LIST changes: +BUDESONIDE EC3 MG PO; +DICYCLOMINE HCL10 MG PO; +FAMOTIDINE40 MG PO
[2022-04-06 13:57] LABS: HEMATOCRIT 24.9 % (37.0-47.0); MEAN CORPUSCULAR HGB 20.2 pg (27.0-31.0); MEAN CORPUSCULAR HGB CONC 27.7 g/dl (33.0-37.0); MEAN PLATELET VOLUME 8.3 fl (9.6-12.3); PLATELET COUNT AUTOMATED 889 10*3/uL (130-400); RED BLOOD COUNT 3.41 10*6/uL (4.10-5.10); RED CELL DISTRI WIDTH 19.6 % (0-14.5); WHITE BLOOD COUNT 8.9 10*3/uL (4.8-10.8)
[2022-04-06 14:02] LABS: MANUAL DIFF REFLEX YES
[2022-04-06 14:25] LABS: BASOPHILS 1 % (0-1); OVALOCYTES FEW; PLATELET SUFFICIENCY HIGH (NORMAL); POLYCHROMASIA SLIGHT; TOTAL CELLS COUNTED 100 #CELLS
== END | disposition home or self-care (01) ==
LOC: LAB 13:33
PROVIDERS: Nurse Practitioner Family; ATTEND Nurse Practitioner Family
DX: D62 Acute posthemorrhagic anemia (principal); K92.2 Gastrointestinal hemorrhage, unspecified

== ENCOUNTER → 2022-05-04 | Outpatient (CLI) | payer OTHER ==
[2022-05-04 13:10] LABS: BASO # 0.1 10*3/uL (0.0-0.1); BASO % 1.1 % (0.0-1.0); EOS # 0.7 10*3/uL (0.0-0.4); EOS % 8.3 % (1.0-4.0); LYMPH # 1.8 10*3/uL (1.3-4.4); LYMPH % 21.8 % (27.0-41.0); MEAN CELL VOLUME 79.9 fl (81.0-99.0); MEAN CORPUSCULAR HGB 22.7 pg (27.0-31.0); MEAN CORPUSCULAR HGB CONC 28.5 g/dl (33.0-37.0); MEAN PLATELET VOLUME 8.7 fl (9.6-12.3); MONO # 0.7 10*3/uL (0.1-1.0); NEUT # 4.8 10*3/uL (2.3-7.9); NEUT % 59.6 % (47.0-73.0); PLATELET COUNT AUTOMATED 542 10*3/uL (130-400); RED BLOOD COUNT 4.88 10*6/uL (4.10-5.10); RED CELL DISTRI WIDTH 23.5 % (0-14.5); WHITE BLOOD COUNT 8.1 10*3/uL (4.8-10.8)
[2022-05-04 13:43] LABS: ALKALINE PHOSPHATASE 40 U/L (46-116); BUN 20 mg/dl (9-23); CHLORIDE 102 mmol/L (98-107); CHOLESTEROL 167 mg/dL (<200); LDL CHOLESTEROL 86 mg/dL (9-159); POTASSIUM 3.7 mmol/L (3.4-5.1); SGPT/ALT 16 U/L (10-49); TOTAL PROTEIN 7.5 gm/dL (6.0-8.0); TRIGLYCERIDES 151 mg/dl (<150)
== END | disposition home or self-care (01) ==
LOC: LAB 12:37
PROVIDERS: ATTEND Nurse Practitioner Family
DX: G25.81 Restless legs syndrome (principal); D50.0 Iron deficiency anemia secondary to blood loss (chronic)

== ENCOUNTER → 2022-11-02 | Outpatient (CLI) | payer OTHER ==
[2022-11-02 12:25] LABS: BASO # 0.1 10*3/uL (0.0-0.1); BASO % 0.9 % (0.0-1.0); EOS # 0.2 10*3/uL (0.0-0.4); EOS % 2.1 % (1.0-4.0); HEMATOCRIT 44.9 % (37.0-47.0); LYMPH # 2.5 10*3/uL (1.3-4.4); LYMPH % 36.3 % (27.0-41.0); MEAN CELL VOLUME 82.7 fl (81.0-99.0); MEAN CORPUSCULAR HGB 26.7 pg (27.0-31.0); MEAN CORPUSCULAR HGB CONC 32.3 g/dl (33.0-37.0); MEAN PLATELET VOLUME 8.2 fl (9.6-12.3); MONO # 0.5 10*3/uL (0.1-1.0); MONO % 7.6 % (3.0-9.0); NEUT # 3.7 10*3/uL (2.3-7.9); PLATELET COUNT AUTOMATED 375 10*3/uL (130-400); RED BLOOD COUNT 5.43 10*6/uL (4.10-5.10); RED CELL DISTRI WIDTH 15.9 % (0-14.5)
[2022-11-02 12:49] LABS: ALKALINE PHOSPHATASE 51 U/L (46-116); BUN 17 mg/dl (9-23); CHLORIDE 107 mmol/L (98-107); CHOLESTEROL 197 mg/dL (<200); LDL CHOLESTEROL 85 mg/dL (9-159); POTASSIUM 3.8 mmol/L (3.4-5.1); SGPT/ALT 18 U/L (10-49); TOTAL PROTEIN 7.1 gm/dL (6.0-8.0); TRIGLYCERIDES 291 mg/dl (<150)
== END | disposition home or self-care (01) ==
LOC: LAB 11:56
PROVIDERS: ATTEND Nurse Practitioner Family
DX: G25.81 Restless legs syndrome (principal); K92.2 Gastrointestinal hemorrhage, unspecified; I10 Essential (primary) hypertension; D64.9 Anemia, unspecified

== ENCOUNTER → 2023-02-01 | Outpatient (CLI) | payer OTHER | END | disposition home or self-care (01) | LOC: MAMMO 15:28 | PROVIDERS: ATTEND Nurse Practitioner Family | DX: Z12.31 Encounter for screening mammogram for malignant neoplasm of breast (principal); N64.9 Disorder of breast, unspecified ==

== ENCOUNTER → 2023-05-12 | Outpatient (CLI) | payer OTHER ==
[2023-05-12 14:50] LABS: BASO # 0.1 10*3/uL (0.0-0.1); BASO % 0.8 % (0.0-1.0); EOS # 0.5 10*3/uL (0.0-0.4); EOS % 4.3 % (1.0-4.0); HEMATOCRIT 43.5 % (37.0-47.0); LYMPH % 16.1 % (27.0-41.0); MEAN CELL VOLUME 92.8 fl (81.0-99.0); MEAN CORPUSCULAR HGB 27.9 pg (27.0-31.0); MEAN CORPUSCULAR HGB CONC 30.1 g/dl (33.0-37.0); MEAN PLATELET VOLUME 8.5 fl (9.6-12.3); MONO # 0.6 10*3/uL (0.1-1.0); NEUT # 9.1 10*3/uL (2.3-7.9); NEUT % 73.4 % (47.0-73.0); PLATELET COUNT AUTOMATED 527 10*3/uL (130-400); RED BLOOD COUNT 4.69 10*6/uL (4.10-5.10); RED CELL DISTRI WIDTH 13.1 % (0-14.5); WHITE BLOOD COUNT 12.4 10*3/uL (4.8-10.8)
[2023-05-12 15:06] LABS: ALKALINE PHOSPHATASE 55 U/L (46-116); BUN 13 mg/dl (9-23); CHLORIDE 107 mmol/L (98-107); CHOLESTEROL 194 mg/dL (<200); LDL CHOLESTEROL 92 mg/dL (9-159); POTASSIUM 3.8 mmol/L (3.4-5.1); SGPT/ALT 16 U/L (5-49); TOTAL PROTEIN 7.3 gm/dL (6.0-8.0); TRIGLYCERIDES 273 mg/dl (<150)
== END | disposition home or self-care (01) ==
LOC: LAB 14:33
PROVIDERS: ATTEND Nurse Practitioner Family
DX: K52.9 Noninfective gastroenteritis and colitis, unspecified (principal); G25.81 Restless legs syndrome; K92.2 Gastrointestinal hemorrhage, unspecified; I10 Essential (primary) hypertension; E78.2 Mixed hyperlipidemia; D64.9 Anemia, unspecified

== ENCOUNTER → 2023-05-27 | Outpatient (CLI) | payer OTHER ==
[2023-05-27 14:51] LABS: BASO # 0.1 10*3/uL (0.0-0.1); EOS # 1.3 10*3/uL (0.0-0.4); EOS % 12.9 % (1.0-4.0); HEMATOCRIT 40.7 % (37.0-47.0); LYMPH # 2.3 10*3/uL (1.3-4.4); MEAN CELL VOLUME 90.4 fl (81.0-99.0); MEAN CORPUSCULAR HGB 27.3 pg (27.0-31.0); MEAN CORPUSCULAR HGB CONC 30.2 g/dl (33.0-37.0); MEAN PLATELET VOLUME 8.5 fl (9.6-12.3); MONO # 0.7 10*3/uL (0.1-1.0); MONO % 7.4 % (3.0-9.0); NEUT # 5.5 10*3/uL (2.3-7.9); NEUT % 55.3 % (47.0-73.0); PLATELET COUNT AUTOMATED 570 10*3/uL (130-400); RED CELL DISTRI WIDTH 13.1 % (0-14.5)
== END | disposition home or self-care (01) ==
LOC: LAB 14:32
PROVIDERS: ATTEND Nurse Practitioner Family
DX: I10 Essential (primary) hypertension (principal); D64.9 Anemia, unspecified; G25.81 Restless legs syndrome; R73.01 Impaired fasting glucose

== ENCOUNTER 2023-06-07 12:34 | Inpatient (IN) | payer OTHER ==
[~2023-06-07] VITALS: Ht 152.4 cm; Wt 81.6 kg
[2023-06-07 12:51] VITALS: BP 119/60
[2023-06-07] MEDS ORDERED: SODIUM CHLORIDE 0.9% 1,000 ML IV ONE ×2 (13:05→19:03)
[2023-06-07] MEDS ORDERED: Ondansetron Hydrochloride 4 MG/2 ML VIAL IV ONE (13:05)
[2023-06-07 14:09] LABS: BASO # 0.1 10*3/uL (0.0-0.1); BASO % 0.9 % (0.0-1.0); EOS # 0.6 10*3/uL (0.0-0.4); EOS % 6.8 % (1.0-4.0); HEMATOCRIT 35.4 % (37.0-47.0); LYMPH # 2.1 10*3/uL (1.3-4.4); LYMPH % 25.4 % (27.0-41.0); MEAN CELL VOLUME 89.6 fl (81.0-99.0); MEAN CORPUSCULAR HGB 26.3 pg (27.0-31.0); MEAN CORPUSCULAR HGB CONC 29.4 g/dl (33.0-37.0); MEAN PLATELET VOLUME 8.3 fl (9.6-12.3); MONO # 0.9 10*3/uL (0.1-1.0); MONO % 11.1 % (3.0-9.0); NEUT # 4.5 10*3/uL (2.3-7.9); NEUT % 55.4 % (47.0-73.0); PLATELET COUNT AUTOMATED 698 10*3/uL (130-400); RED BLOOD COUNT 3.95 10*6/uL (4.10-5.10); RED CELL DISTRI WIDTH 13.2 % (0-14.5); WHITE BLOOD COUNT 8.2 10*3/uL (4.8-10.8)
[2023-06-07 14:24] LABS: BUN 9 mg/dl (9-23); CHLORIDE 106 mmol/L (98-107); POTASSIUM 3.3 mmol/L (3.4-5.1)
[2023-06-07 14:32] VITALS: BP 118/68
[2023-06-07] MEDS ORDERED: methylPREDNISolone sod succ 125 MG VIAL IV ONE (15:00)
[2023-06-07] MEDS ORDERED: ACETAMINOPHEN 325 MG TAB PO PRN (16:45)
[2023-06-07] MEDS ORDERED: Magnesium Hydroxide 30 ML UDC PO PRN (16:45)
[2023-06-07] MEDS ORDERED: Ondansetron Hydrochloride 4 MG/2 ML VIAL IV PRN (16:45)
[2023-06-07 17:14] VITALS: BP 125/78
[2023-06-07] MEDS ORDERED: SODIUM CHLORIDE 0.9% 1,000 ML IV SCH (17:45)
[2023-06-07] MEDS ORDERED: POTASSIUM CHLORIDE IN WATER 100 ML IV SCH (18:00)
[2023-06-07 20:36] LABS: BILIRUBIN Negative (Negative); BLOOD 1+ (Negative); CLARITY Clear (Clear); COLOR Yellow (Yellow); GLUCOSE Negative (Negative); KETONE 4+ (Negative); LEUKO ESTERASE Trace (Negative); NITRITE Negative (Negative); PH 5.5 (4.5-8.0); SPECIFIC GRAVITY 1.025 (1.001-1.030); UROBILINOGEN 0.2 E.U./dl (0.0-1.0)
[2023-06-07 20:52] LABS: BACTERIA 1+; MUCOUS 2+
[2023-06-07 21:59] VITALS: BP 111/62
[2023-06-07] MEDS ORDERED: methylPREDNISolone sod succ 40 MG VIAL IV SCH (22:00)
[2023-06-07] MEDS ORDERED: Ropinirole Hydrochloride 1 MG TAB PO SCH (22:00)
[2023-06-07] MEDS ORDERED: MESALAMINE 400 MG TAB PO SCH (22:00)
[2023-06-08 02:00] VITALS: BP 122/76
[2023-06-08 04:00] VITALS: BP 112/76
[2023-06-08 06:43] LABS: BASO % 0.5 % (0.0-1.0); HEMATOCRIT 32.6 % (37.0-47.0); LYMPH # 1.9 10*3/uL (1.3-4.4); LYMPH % 24.1 % (27.0-41.0); MEAN CELL VOLUME 88.3 fl (81.0-99.0); MEAN CORPUSCULAR HGB 26.8 pg (27.0-31.0); MEAN CORPUSCULAR HGB CONC 30.4 g/dl (33.0-37.0); MEAN PLATELET VOLUME 8.8 fl (9.6-12.3); MONO # 0.3 10*3/uL (0.1-1.0); MONO % 4.3 % (3.0-9.0); NEUT # 5.4 10*3/uL (2.3-7.9); NEUT % 70.1 % (47.0-73.0); PLATELET COUNT AUTOMATED 690 10*3/uL (130-400); RED BLOOD COUNT 3.69 10*6/uL (4.10-5.10); RED CELL DISTRI WIDTH 13.2 % (0-14.5); WHITE BLOOD COUNT 7.7 10*3/uL (4.8-10.8)
[2023-06-08 07:07] LABS: ALKALINE PHOSPHATASE 49 U/L (46-116); BUN 10 mg/dl (9-23); CHLORIDE 107 mmol/L (98-107); SGPT/ALT 8 U/L (5-49); TOTAL PROTEIN 6.3 gm/dL (6.0-8.0)
[2023-06-08 08:00] VITALS: BP 129/69
[2023-06-08] MEDS ORDERED: Enoxaparin Sodium 40 MG/0.4 ML SYR SC SCH (10:00)
[2023-06-08 12:00] VITALS: BP 129/71
[2023-06-08 16:00] VITALS: BP 155/75
[2023-06-08 20:00] VITALS: BP 129/62
[2023-06-08] MEDS ORDERED: METRONIDAZOLE 100 ML IV SCH (22:00)
[2023-06-09] VITALS: BP 130/59
[2023-06-09 05:43] LABS: BUN 14 mg/dl (9-23); CHLORIDE 105 mmol/L (98-107); POTASSIUM 4.4 mmol/L (3.4-5.1)
[2023-06-09 05:56] LABS: BASO % 0.1 % (0.0-1.0); EOS % 0.3 % (1.0-4.0); LYMPH # 1.6 10*3/uL (1.3-4.4); LYMPH % 15.6 % (27.0-41.0); MEAN CELL VOLUME 86.7 fl (81.0-99.0); MEAN CORPUSCULAR HGB 27.1 pg (27.0-31.0); MEAN CORPUSCULAR HGB CONC 31.3 g/dl (33.0-37.0); MEAN PLATELET VOLUME 8.7 fl (9.6-12.3); MONO # 0.9 10*3/uL (0.1-1.0); MONO % 8.8 % (3.0-9.0); NEUT # 7.5 10*3/uL (2.3-7.9); NEUT % 74.4 % (47.0-73.0); PLATELET COUNT AUTOMATED 713 10*3/uL (130-400); RED BLOOD COUNT 3.69 10*6/uL (4.10-5.10); RED CELL DISTRI WIDTH 13.2 % (0-14.5); WHITE BLOOD COUNT 10.1 10*3/uL (4.8-10.8)
[2023-06-09 08:00] VITALS: BP 161/81
[2023-06-09] MEDS ORDERED: Dicyclomine Hydrochloride 10 MG CAP PO PRN (09:15)
[2023-06-09] MEDS ORDERED: PREDNISONE50 MG PO (10:32)
[2023-06-09] MEDS ORDERED: CIPRO500 MG PO (10:32)
[2023-06-09] MEDS ORDERED: METRONIDAZOLE500 M1 PO (10:32)
== END 2023-06-09 16:52 | disposition home or self-care (01) | DRG 386 ==
LOC: ED 12:34 → ICCU 15:11 → EDHOLD 15:11 → ICCU 06-08 03:39
PROVIDERS: Student in an Organized Health Care Education/Training Program; ADMIT Internal Medicine; ATTEND Internal Medicine
DX: K51.911 Ulcerative colitis, unspecified with rectal bleeding (principal); E44.0 Moderate protein-calorie malnutrition; K92.2 Gastrointestinal hemorrhage, unspecified; E87.6 Hypokalemia; D75.839 Thrombocytosis, unspecified; D64.9 Anemia, unspecified; I10 Essential (primary) hypertension; G25.81 Restless legs syndrome; Z87.891 Personal history of nicotine dependence; Z88.5 Allergy status to narcotic agent; Z79.899 Other long term (current) drug therapy; Z68.35 Body mass index [BMI] 35.0-35.9, adult

== ENCOUNTER → 2023-08-04 | Outpatient (CLI) | payer OTHER ==
[~2023-08-04] MED LIST changes: +PREDNISONE50 MG PO
[2023-08-04 12:37] LABS: BASO # 0.1 10*3/uL (0.0-0.1); BASO % 1.4 % (0.0-1.0); EOS # 0.8 10*3/uL (0.0-0.4); EOS % 9.2 % (1.0-4.0); HEMATOCRIT 28.7 % (37.0-47.0); LYMPH % 24.5 % (27.0-41.0); MEAN CELL VOLUME 76.1 fl (81.0-99.0); MEAN CORPUSCULAR HGB 20.7 pg (27.0-31.0); MEAN CORPUSCULAR HGB CONC 27.2 g/dl (33.0-37.0); MEAN PLATELET VOLUME 8.4 fl (9.6-12.3); MONO % 12.1 % (3.0-9.0); NEUT # 4.4 10*3/uL (2.3-7.9); NEUT % 52.3 % (47.0-73.0); NUCLEATED RED BLOOD CELL 0.2 % (0.0-0.0); PLATELET COUNT AUTOMATED 922 10*3/uL (130-400); RED BLOOD COUNT 3.77 10*6/uL (4.10-5.10); RED CELL DISTRI WIDTH 16.3 % (0-14.5); WHITE BLOOD COUNT 8.3 10*3/uL (4.8-10.8)
[2023-08-04 12:58] LABS: ALKALINE PHOSPHATASE 48 U/L (46-116); BUN 10 mg/dl (9-23); CHLORIDE 105 mmol/L (98-107); CHOLESTEROL 162 mg/dL (<200); LDL CHOLESTEROL 83 mg/dL (9-159); POTASSIUM 3.9 mmol/L (3.4-5.1); SGPT/ALT < 7 U/L (5-49); TOTAL PROTEIN 7.2 gm/dL (6.0-8.0); TRIGLYCERIDES 131 mg/dl (<150)
== END | disposition home or self-care (01) ==
LOC: LAB 12:14
PROVIDERS: ATTEND Nurse Practitioner Family
DX: I10 Essential (primary) hypertension (principal); D64.9 Anemia, unspecified; G25.81 Restless legs syndrome; R73.01 Impaired fasting glucose

== ENCOUNTER 2023-08-17 17:06 | Emergency (ER) | payer OTHER ==
[2023-08-17] VITALS (7 sets, daily range): BP systolic 120–149; BP diastolic 65–75
[~2023-08-17] VITALS: Wt 75.3 kg
[2023-08-17 18:32] LABS: BASO # 0.1 10*3/uL (0.0-0.1); EOS # 0.7 10*3/uL (0.0-0.4); EOS % 8.4 % (1.0-4.0); HEMATOCRIT 25.6 % (37.0-47.0); LYMPH # 1.7 10*3/uL (1.3-4.4); LYMPH % 20.7 % (27.0-41.0); MEAN CELL VOLUME 72.7 fl (81.0-99.0); MEAN CORPUSCULAR HGB 19.9 pg (27.0-31.0); MEAN CORPUSCULAR HGB CONC 27.3 g/dl (33.0-37.0); MEAN PLATELET VOLUME 8.6 fl (9.6-12.3); MONO # 0.7 10*3/uL (0.1-1.0); MONO % 8.3 % (3.0-9.0); NEUT % 61.4 % (47.0-73.0); PLATELET COUNT AUTOMATED 797 10*3/uL (130-400); RED BLOOD COUNT 3.52 10*6/uL (4.10-5.10); RED CELL DISTRI WIDTH 16.9 % (0-14.5); WHITE BLOOD COUNT 8.1 10*3/uL (4.8-10.8)
[2023-08-17 18:52] LABS: ALKALINE PHOSPHATASE 50 U/L (46-116); BUN 13 mg/dl (9-23); CHLORIDE 108 mmol/L (98-107); POTASSIUM 3.4 mmol/L (3.4-5.1); TOTAL PROTEIN 7.1 gm/dL (6.0-8.0)
[2023-08-17 18:54] LABS: SGPT/ALT < 7 U/L (5-49)
[2023-08-17 19:49] LABS: BILIRUBIN Negative (Negative); BLOOD Negative (Negative); CLARITY Clear (Clear); COLOR Yellow (Yellow); GLUCOSE Negative (Negative); KETONE Negative (Negative); LEUKO ESTERASE Negative (Negative); NITRITE Negative (Negative); UROBILINOGEN 0.2 E.U./dl (0.0-1.0)
[2023-08-17 19:59] LABS: WBC 0-2 wbc/hpf (0-5)
[2023-08-17] MEDS ORDERED: IOHEXOL 300 MG/ML 100 ML VIAL IV ONE (20:40)
[2023-08-17] MEDS ORDERED: SODIUM CHLORIDE 0.9% 500 ML IV ONE (22:12)
[2023-08-18 00:06] VITALS: BP 147/75
[2023-08-18 00:21] VITALS: BP 130/62
== END 2023-08-17 21:23 | disposition home or self-care (01) ==
LOC: ED 17:06
PROVIDERS: Nurse Practitioner
DX: K92.2 Gastrointestinal hemorrhage, unspecified (principal); D64.9 Anemia, unspecified; Z53.29 Procedure and treatment not carried out because of patient's decision for other reasons; Z88.5 Allergy status to narcotic agent; Z79.899 Other long term (current) drug therapy; Z79.2 Long term (current) use of antibiotics; Z90.89 Acquired absence of other organs; Z87.891 Personal history of nicotine dependence

== ENCOUNTER → 2023-09-01 | Outpatient (CLI) | payer OTHER ==
[2023-09-01 15:35] LABS: BASO # 0.1 10*3/uL (0.0-0.1); BASO % 1.2 % (0.0-1.0); EOS # 0.6 10*3/uL (0.0-0.4); EOS % 8.3 % (1.0-4.0); HEMATOCRIT 32.1 % (37.0-47.0); LYMPH # 2.4 10*3/uL (1.3-4.4); LYMPH % 36.2 % (27.0-41.0); MEAN CELL VOLUME 76.8 fl (81.0-99.0); MEAN CORPUSCULAR HGB 21.1 pg (27.0-31.0); MEAN CORPUSCULAR HGB CONC 27.4 g/dl (33.0-37.0); MEAN PLATELET VOLUME 8.6 fl (9.6-12.3); MONO # 0.6 10*3/uL (0.1-1.0); MONO % 9.2 % (3.0-9.0); NEUT % 44.8 % (47.0-73.0); PLATELET COUNT AUTOMATED 739 10*3/uL (130-400); RED BLOOD COUNT 4.18 10*6/uL (4.10-5.10); RED CELL DISTRI WIDTH 21.8 % (0-14.5); WHITE BLOOD COUNT 6.7 10*3/uL (4.8-10.8)
[2023-09-01 16:11] LABS: ALKALINE PHOSPHATASE 49 U/L (46-116); BUN 16 mg/dl (9-23); CHLORIDE 106 mmol/L (98-107); POTASSIUM 4.5 mmol/L (3.4-5.1); TOTAL PROTEIN 7.3 gm/dL (6.0-8.0)
[2023-09-01 16:12] LABS: SGPT/ALT < 7 U/L (5-49)
== END | disposition home or self-care (01) ==
LOC: LAB 15:18
PROVIDERS: ATTEND Nurse Practitioner
DX: K51.90 Ulcerative colitis, unspecified, without complications (principal); R93.89 Abnormal findings on diagnostic imaging of other specified body structures

== ENCOUNTER → 2023-10-21 | Outpatient (CLI) | payer OTHER ==
[2023-10-21 11:59] LABS: HEMATOCRIT 42.3 % (37.0-47.0)
== END | disposition home or self-care (01) ==
LOC: LAB 11:40
PROVIDERS: ATTEND Internal Medicine Gastroenterology
DX: K58.9 Irritable bowel syndrome, unspecified (principal); K21.9 Gastro-esophageal reflux disease without esophagitis

== ENCOUNTER → 2024-01-16 | Outpatient (CLI) | payer OTHER ==
[2024-01-16 12:22] LABS: BASO # 0.1 10*3/uL (0.0-0.1); BASO % 1.1 % (0.0-1.0); EOS # 0.8 10*3/uL (0.0-0.4); EOS % 9.7 % (1.0-4.0); HEMATOCRIT 45.4 % (37.0-47.0); LYMPH % 36.5 % (27.0-41.0); MEAN CELL VOLUME 87.5 fl (81.0-99.0); MEAN CORPUSCULAR HGB 28.7 pg (27.0-31.0); MEAN CORPUSCULAR HGB CONC 32.8 g/dl (33.0-37.0); MEAN PLATELET VOLUME 8.3 fl (9.6-12.3); MONO # 0.6 10*3/uL (0.1-1.0); MONO % 6.6 % (3.0-9.0); NEUT # 3.8 10*3/uL (2.3-7.9); NEUT % 45.9 % (47.0-73.0); PLATELET COUNT AUTOMATED 424 10*3/uL (130-400); RED BLOOD COUNT 5.19 10*6/uL (4.10-5.10); RED CELL DISTRI WIDTH 14.6 % (0-14.5); WHITE BLOOD COUNT 8.3 10*3/uL (4.8-10.8)
[2024-01-16 12:46] LABS: ALKALINE PHOSPHATASE 53 U/L (46-116); BUN 21 mg/dl (9-23); CHLORIDE 106 mmol/L (98-107); CHOLESTEROL 209 mg/dL (<200); LDL CHOLESTEROL 124 mg/dL (9-159); SGPT/ALT 21 U/L (5-49); TOTAL PROTEIN 7.4 gm/dL (6.0-8.0); TRIGLYCERIDES 177 mg/dl (<150)
== END | disposition home or self-care (01) ==
LOC: LAB 12:03
PROVIDERS: ATTEND Nurse Practitioner Family
DX: D64.9 Anemia, unspecified (principal); K52.9 Noninfective gastroenteritis and colitis, unspecified; G25.81 Restless legs syndrome